=== PATIENT | female | born 1980 | race Caucasian/White ===

== ENCOUNTER 2021-05-09 10:00 | Outpatient (CLI) | payer OTHER | END 2021-05-09 10:01 | disposition home or self-care (01) | LOC: CSHMRI 10:00 | PROVIDERS: ATTEND Internal Medicine Gastroenterology | DX: K76.89 Other specified diseases of liver (principal) | CPT/HCPCS: 74183 ==

== ENCOUNTER 2024-05-29 12:11 | Outpatient (CLI) | payer OTHER | END 2024-05-29 12:12 | disposition home or self-care (01) | LOC: CSHMRI 12:11 | PROVIDERS: ATTEND Internal Medicine Gastroenterology | DX: K76.89 Other specified diseases of liver (principal); K76.9 Liver disease, unspecified | CPT/HCPCS: 74183 ==